=== PATIENT | male | born 1935 | race Hispanic/Latino ===

== ENCOUNTER → 2019-12-31 | Outpatient (CLI) | payer OTHER ==
[~2019-12-31] MED LIST: GADODIAMIDE 10 MMOL/20 ML VIAL IV ONE
== END | disposition home or self-care (01) ==
LOC: RAH 10:00
PROVIDERS: ATTEND Family Medicine
DX: G31.1 Senile degeneration of brain, not elsewhere classified (principal)
CPT/HCPCS: 70553; A9579

== ENCOUNTER 2020-02-10 20:53 | Inpatient (IN) | payer OTHER ==
[~2020-02-10] VITALS: Ht 165.1 cm; Wt 78.1 kg
[2020-02-10 21:48] LABS: BASOPHILS % (AUTO) 0.1 % (0.0-5.0); EOSINOPHILS % (AUTO) 0.3 % (0.0-8.0); HEMATOCRIT 30.4 % (42-54); LYMPHOCYTES % (AUTO) 18.8 % (21.0-51.0); MEAN CORPUSCULAR HEMOGLOBIN 27.2 pg (27.0-33.0); MEAN CORPUSCULAR HGB CONC 34.2 g/dL (32.0-36.0); MEAN CORPUSCULAR VOLUME 79.6 fL (79-99); MONOCYTES % (AUTO) 11.9 % (3.0-13.0); NEUTROPHILS % (AUTO) 68.3 % (40.0-77.0); PLATELET COUNT (AUTO) 323 K/uL (130-400); RED BLOOD CELL COUNT(AUTO) 3.82 MIL/uL (4.50-6.20); RED CELL DISTRIBUTION WIDTH 17.9 % (11.0-15.5)
[2020-02-10 21:56] LABS: ALBUMIN 3.2 g/dL (3.5-5.0); BILIRUBIN,TOTAL 1.5 mg/dL (0.2-1.0); CREATININE 1.2 mg/dL (0.5-1.5); POTASSIUM 4.2 mmol/L (3.5-5.1); TOTAL PROTEIN, SERUM 6.5 g/dL (6.0-8.3)
[2020-02-10 22:02] LABS: APPEARANCE,URINE Clear (CLEAR); BILIRUBIN,URINE Negative (NEGATIVE); COLOR,URINE Dark Yellow (YELLOW); GLUCOSE, URINE (UA) Negative (NEGATIVE); KETONES,URINE Trace mg/dL (NEGATIVE); LEUKOCYTE ESTERASE ,URINE Trace (NEGATIVE); NITRATE,URINE Negative (NEGATIVE); OCCULT BLOOD,URINE Negative (NEGATIVE); PROTEIN,URINE Trace mg/dL (NEGATIVE)
[2020-02-10 22:26] LABS: BACTERIA,URINE None Seen /HPF (None Seen); MUCUS,URINE Many LPF (None Seen); RBC,URINE None Seen /HPF (0-1); SQUAMOUS EPITHELIAL CELL,UR Few /HPF (0-2)
[2020-02-10] MEDS ORDERED: SODIUM CHLORIDE 0.9% 1000ML 1,000 ML IV ONE ×2 (22:40→22:58)
[2020-02-10] MEDS ORDERED: SODIUM BICARBONATE 650 MG TAB ONE (22:57)
[2020-02-11] VITALS (7 sets, daily range): BP systolic 117–150; BP diastolic 53–69
[2020-02-11] MEDS ORDERED: GABA600T10 PO (00:47)
[2020-02-11] MEDS ORDERED: LISI2.5T2 PO (00:47)
[2020-02-11] MEDS ORDERED: METF-444 PO (00:47)
[2020-02-11] MEDS ORDERED: MULT-1289 PO (00:47)
[2020-02-11] MEDS ORDERED: CARB1TAB20 PO (00:51)
[2020-02-11] MEDS ORDERED: TAMS-1 PO (00:51)
[2020-02-11] MEDS ORDERED: PRAV10TA39 PO (00:51)
[2020-02-11] MEDS ORDERED: ACET-2743 PO (00:51)
[2020-02-11] MEDS ORDERED: BRIM5DRO OU (00:54)
[2020-02-11] MEDS ORDERED: DORZ10DR9 OU (00:54)
[2020-02-11] MEDS ORDERED: FERS325 PO (00:54)
[2020-02-11] MEDS ORDERED: LATA2.5D2 OU (00:55)
[2020-02-11] MEDS: SODIUM CHLORIDE 0.9% 1000ML 1,000 ML IV SCH ×2 (02:00→15:24)
[2020-02-11] MEDS: SODIUM BICARBONATE 650 MG TAB PO SCH ×2 (07:51→21:53)
[2020-02-11] MEDS: FERROUS SULFATE 325 MG TABLET.DR PO SCH (07:52)
[2020-02-11] MEDS: LISINOPRIL 2.5 MG TABLET PO SCH (07:52)
[2020-02-11] MEDS: TAMSULOSIN HCL 0.4 MG CAP.ER.24H PO SCH (07:52)
[2020-02-11] MEDS: METFORMIN HCL 500 MG TABLET PO SCH ×2 (07:53→17:16)
[2020-02-11] MEDS: MULTIVITAMIN WITH MINERALS TABLET PO SCH (07:53)
[2020-02-11] MEDS: GABAPENTIN 300 MG CAPSULE PO SCH (07:53)
[2020-02-11] MEDS: ACETAMINOPHEN EXTRA STRENGTH 500 MG TABLET PO PRN ×2 (07:55→21:53)
[2020-02-11] MEDS: TIMOLOL OU SCH ×2 (07:57→21:55)
[2020-02-11] MEDS: BRIMONIDINE TARTRATE OU SCH ×2 (07:57→21:55)
[2020-02-11] MEDS: DORZOLAMIDE HCL 2% 10ML DROPS OU SCH ×3 (08:00→21:54)
[2020-02-11] MEDS: CARBIDOPA-LEVODOPA 25-100 TAB PO SCH ×3 (08:01→21:52)
--- NOTE | 2020-02-11 10:00 | NUR ---
DYSPHAGIA EVAL COMPLETED. -S/S OF ASPIRATION. RECOMMEND MECHANICAL SOFT/CHOPPED, THIN LIQUIDS; PILLS WHOLE WITH LIQUIDS. Addendum: 02/11/20 at 1352 by ALYSSIA BOSCH, [facility] Amended: Links added.
[2020-02-11 10:14] LABS: POTASSIUM 3.9 mmol/L (3.5-5.1)
--- NOTE | 2020-02-11 12:14 | NUR ---
1200 received oral consent from patient for IM Letter, I faxed IM Letter to [phone] and placed in chart under consent tab.
--- NOTE | 2020-02-11 13:53 | NUR ---
CT ABD/PELVIS PT A/A X 2 VS STABLE PT GOING FOR CT IN WHEELCHAIR
--- NOTE | 2020-02-11 15:19 | NUR ---
XRAY PT LEFT BY BED FOR XRAY
--- NOTE | 2020-02-11 16:40 | NUR ---
DCP CM met w/pt asleep at this time, called spouse spoke to Sushila Nicole discussed dc plans. Pt is semi-independent prior to admission, lives at home with spouse. Pt has a walker, shower chair, bedside commode, wheelchair that belongs to nephew previously. Spouse verbalized their house is handicap accessible, restroom has built in rails and sit w/handle bars. Was active w/[facility] for PT, but discharged last week. Denies nay other equipments/services. Feels safe to go back home, spouse able to assist with transportation and needs as necessary. Discussed if spouse ok for short term rehab, spouse verbalized she'll think about it, if necessary she is ok, will decide once closer to dc. DC plan to home vs w/HH or SNF. CM to cont to follow up. Addendum: 02/11/20 at 1644 by VALERIE HARRIS LVN CM Amended: Links added.
[2020-02-11] MEDS: SIMVASTATIN 10 MG TABLET PO SCH (21:52)
[2020-02-11] MEDS: LATANOPROST 2.5 ML DROPS OU SCH (21:55)
[2020-02-12 03:40] VITALS: BP 157/68
[2020-02-12 05:30] LABS: CREATININE 0.8 mg/dL (0.5-1.5); POTASSIUM 3.8 mmol/L (3.5-5.1)
--- NOTE | 2020-02-12 06:00 | NUR ---
PATIENT UPDATE Slept fairly overnight,medicated once for pain with tylenol extra strength which afforded relief. Gets confused most of the time, reoriented x 3. Noted that pt drinks a lot of water everytime he takes the po meds, 1 whole cup of h2o for every 2 pills taken. Pt mostly bedbound, incontinent of urine. Kept warm and dry, nic scd's applied to nic legs for vte protocol.
[2020-02-12] MEDS: GABAPENTIN 300 MG CAPSULE PO SCH (08:03)
[2020-02-12] MEDS: MULTIVITAMIN WITH MINERALS TABLET PO SCH (08:03)
[2020-02-12] MEDS: LISINOPRIL 2.5 MG TABLET PO SCH (08:04)
[2020-02-12] MEDS: FERROUS SULFATE 325 MG TABLET.DR PO SCH (08:04)
[2020-02-12] MEDS: CARBIDOPA-LEVODOPA 25-100 TAB PO SCH ×3 (08:04→21:10)
[2020-02-12] MEDS: SODIUM BICARBONATE 650 MG TAB PO SCH (08:04)
[2020-02-12] MEDS: TAMSULOSIN HCL 0.4 MG CAP.ER.24H PO SCH (08:04)
[2020-02-12] MEDS: METFORMIN HCL 500 MG TABLET PO SCH ×2 (08:05→18:16)
[2020-02-12] MEDS: BRIMONIDINE TARTRATE OU SCH ×2 (08:11→21:11)
[2020-02-12] MEDS: DORZOLAMIDE HCL 2% 10ML DROPS OU SCH ×3 (08:11→21:11)
[2020-02-12] MEDS: TIMOLOL OU SCH ×2 (08:11→21:11)
[2020-02-12 09:53] VITALS: BP 129/65
[2020-02-12] MEDS: SODIUM CHLORIDE 1,000 MG TAB PO SCH ×2 (10:34→18:16)
[2020-02-12 11:37] VITALS: BP 127/46
--- NOTE | 2020-02-12 12:34 | NUR ---
FOLLOW UP COMPLETED. Pt TOLERATING MECHANICAL SOFT, THIN LIQUID DIET. NO OVERT S/S OF ASPIRATION AT THIS TIME. [employer] [employer]ITIONER WILL CONTINUE TO FOLLOW Pt. Addendum: 02/12/20 at 1236 by ALYSSIA BOSCH, [facility] ST Amended: Links added.
[2020-02-12] MEDS: ACETAMINOPHEN EXTRA STRENGTH 500 MG TABLET PO PRN (15:12)
--- NOTE | 2020-02-12 16:38 | NUR ---
TYLENOL GIVEN FOR GENERALIZED PAIN
[2020-02-12 16:45] VITALS: BP 114/62
[2020-02-12] MEDS: SODIUM CHLORIDE 0.9% 1000ML 1,000 ML IV SCH ×3 (18:00→23:36)
[2020-02-12 20:00] VITALS: BP 128/59
[2020-02-12] MEDS: SIMVASTATIN 10 MG TABLET PO SCH (21:10)
[2020-02-12] MEDS: LATANOPROST 2.5 ML DROPS OU SCH (21:11)
[2020-02-12 23:44] VITALS: BP 131/59
[2020-02-13 03:55] VITALS: BP 158/77
[2020-02-13 05:29] LABS: CREATININE 0.8 mg/dL (0.5-1.5); MAGNESIUM 1.6 mg/dL (1.80-2.40); POTASSIUM 3.8 mmol/L (3.5-5.1)
[2020-02-13 08:00] VITALS: BP 144/59
[2020-02-13] MEDS: METFORMIN HCL 500 MG TABLET PO SCH ×2 (09:16→20:14)
[2020-02-13] MEDS: GABAPENTIN 300 MG CAPSULE PO SCH (09:16)
[2020-02-13] MEDS: MULTIVITAMIN WITH MINERALS TABLET PO SCH (09:17)
[2020-02-13] MEDS: LISINOPRIL 2.5 MG TABLET PO SCH (09:17)
[2020-02-13] MEDS: CARBIDOPA-LEVODOPA 25-100 TAB PO SCH ×3 (09:17→21:36)
[2020-02-13] MEDS: TAMSULOSIN HCL 0.4 MG CAP.ER.24H PO SCH (09:18)
[2020-02-13] MEDS: SODIUM CHLORIDE 1,000 MG TAB PO SCH ×3 (09:18→20:14)
[2020-02-13] MEDS: FERROUS SULFATE 325 MG TABLET.DR PO SCH (09:18)
[2020-02-13] MEDS: DORZOLAMIDE HCL 2% 10ML DROPS OU SCH ×3 (09:25→21:42)
[2020-02-13] MEDS: BRIMONIDINE TARTRATE OU SCH ×2 (09:28→21:42)
[2020-02-13] MEDS: TIMOLOL OU SCH ×2 (09:28→21:42)
[2020-02-13 11:00] VITALS: BP 147/52
--- NOTE | 2020-02-13 15:01 | NUR ---
RD NOTIFICATION Pt admitted with Hyponatremia, Recent fall, weakness. Pt is with improved appetite on Regular, mechanical soft, Finely chopped diet order. Monitored labs:Na 126, Cl 93, BG 122, Mg 1.60, Alb 3.2. Pt with NaCl tablet with meals in place. Pt also with MVI. LBM 02/10/20. Recommend monitor for BM, stool softener/laxative as needed Recommend Glucerna QD Recommend Mg supplementation as medically feasible. RD to continue to monitor. Please notify as additional nutrition concerns arise. Thank you.
[2020-02-13 16:51] VITALS: BP 125/55
[2020-02-13 19:00] VITALS: BP 141/61
[2020-02-13] MEDS: SIMVASTATIN 10 MG TABLET PO SCH (21:36)
[2020-02-13] MEDS: LATANOPROST 2.5 ML DROPS OU SCH (21:42)
[2020-02-14] VITALS (7 sets, daily range): BP systolic 112–166; BP diastolic 47–74
[2020-02-14] MEDS: ACETAMINOPHEN EXTRA STRENGTH 500 MG TABLET PO PRN (04:34)
[2020-02-14 06:05] LABS: HEMATOCRIT 27.5 % (42-54); MEAN CORPUSCULAR HEMOGLOBIN 27.2 pg (27.0-33.0); MEAN CORPUSCULAR HGB CONC 33.1 g/dL (32.0-36.0); MEAN CORPUSCULAR VOLUME 82.3 fL (79-99); PLATELET COUNT (AUTO) 307 K/uL (130-400); RED BLOOD CELL COUNT(AUTO) 3.34 MIL/uL (4.50-6.20); RED CELL DISTRIBUTION WIDTH 18.4 % (11.0-15.5); WHITE BLOOD COUNT (AUTO) 7.7 K/uL (4.8-10.8)
[2020-02-14 06:40] LABS: ALBUMIN 2.5 g/dL (3.5-5.0); BILIRUBIN,TOTAL 1.1 mg/dL (0.2-1.0); CREATININE 0.8 mg/dL (0.5-1.5); MAGNESIUM 1.6 mg/dL (1.80-2.40); PHOSPHORUS 3.2 mg/dL (2.5-4.9); POTASSIUM 4.2 mmol/L (3.5-5.1); THYROID STIMULATING HORMONE 1.1 uIU/mL (0.36-3.74); TOTAL PROTEIN, SERUM 5.9 g/dL (6.0-8.3)
[2020-02-14] MEDS: MULTIVITAMIN WITH MINERALS TABLET PO SCH (09:28)
[2020-02-14] MEDS: SODIUM CHLORIDE 1,000 MG TAB PO SCH ×3 (09:28→18:46)
[2020-02-14] MEDS: CARBIDOPA-LEVODOPA 25-100 TAB PO SCH ×3 (09:28→20:16)
[2020-02-14] MEDS: TAMSULOSIN HCL 0.4 MG CAP.ER.24H PO SCH (09:29)
[2020-02-14] MEDS: GABAPENTIN 300 MG CAPSULE PO SCH (09:29)
[2020-02-14] MEDS: LISINOPRIL 2.5 MG TABLET PO SCH (09:29)
[2020-02-14] MEDS: METFORMIN HCL 500 MG TABLET PO SCH ×2 (09:30→18:45)
[2020-02-14] MEDS: FERROUS SULFATE 325 MG TABLET.DR PO SCH (09:30)
[2020-02-14] MEDS: BRIMONIDINE TARTRATE OU SCH ×2 (09:43→19:37)
[2020-02-14] MEDS: TIMOLOL OU SCH ×2 (09:43→19:37)
[2020-02-14] MEDS: DORZOLAMIDE HCL 2% 10ML DROPS OU SCH ×3 (09:44→19:37)
[2020-02-14] MEDS ORDERED: MAG HYDROX/AL HYDROX/SIMETH ES 30 ML SUSP UDCUP PO PRN (13:45)
[2020-02-14] MEDS: CEFTRIAXONE SODIUM 1 GM IVP SCH (14:30)
[2020-02-14] MEDS: SENNOSIDES 8.6 MG TABLET PO SCH (14:30)
[2020-02-14] MEDS: MAGNESIUM 2GM PREMIX 50ML 50 ML IV SCH (14:36)
[2020-02-14] MEDS: INSULIN HUMULIN R 100 UNIT/ML 3ML SQ SCH ×2 (16:30→19:37)
[2020-02-14] MEDS: LATANOPROST 2.5 ML DROPS OU SCH (19:37)
[2020-02-14] MEDS: SIMVASTATIN 10 MG TABLET PO SCH (20:16)
--- NOTE | 2020-02-14 23:17 | NUR ---
received report from am nurse, assumed care, pt aox2, bed alarm on, head to toe assessment done, timed medication given see emar, 24 cc done, safety maintained, bed in lowest position, call ayala in reached, will continue to monitor.
[2020-02-15 04:00] VITALS: BP 118/49
[2020-02-15 06:22] LABS: HEMATOCRIT 25.7 % (42-54); MEAN CORPUSCULAR HEMOGLOBIN 27.7 pg (27.0-33.0); MEAN CORPUSCULAR HGB CONC 33.5 g/dL (32.0-36.0); MEAN CORPUSCULAR VOLUME 82.6 fL (79-99); RED BLOOD CELL COUNT(AUTO) 3.11 MIL/uL (4.50-6.20); RED CELL DISTRIBUTION WIDTH 18.5 % (11.0-15.5); WHITE BLOOD COUNT (AUTO) 5.5 K/uL (4.8-10.8)
[2020-02-15 06:42] LABS: CREATININE 0.7 mg/dL (0.5-1.5); MAGNESIUM 1.8 mg/dL (1.80-2.40); POTASSIUM 4.1 mmol/L (3.5-5.1)
[2020-02-15] MEDS: INSULIN HUMULIN R 100 UNIT/ML 3ML SQ SCH ×4 (07:30→21:00)
[2020-02-15 08:00] VITALS: BP 138/63
[2020-02-15] MEDS: METFORMIN HCL 500 MG TABLET PO SCH ×2 (09:39→17:56)
[2020-02-15] MEDS: SODIUM CHLORIDE 1,000 MG TAB PO SCH ×3 (09:39→17:56)
[2020-02-15] MEDS: FERROUS SULFATE 325 MG TABLET.DR PO SCH (09:40)
[2020-02-15] MEDS: TAMSULOSIN HCL 0.4 MG CAP.ER.24H PO SCH (09:41)
[2020-02-15] MEDS: GABAPENTIN 300 MG CAPSULE PO SCH (09:41)
[2020-02-15] MEDS: CARBIDOPA-LEVODOPA 25-100 TAB PO SCH ×3 (09:41→19:37)
[2020-02-15] MEDS: LISINOPRIL 2.5 MG TABLET PO SCH (09:42)
[2020-02-15] MEDS: MULTIVITAMIN WITH MINERALS TABLET PO SCH (09:42)
[2020-02-15] MEDS: TIMOLOL OU SCH ×2 (09:43→19:39)
[2020-02-15] MEDS: DORZOLAMIDE HCL 2% 10ML DROPS OU SCH ×3 (09:43→19:39)
[2020-02-15] MEDS: BRIMONIDINE TARTRATE OU SCH ×2 (09:43→19:39)
[2020-02-15 11:55] VITALS: BP 109/53
[2020-02-15] MEDS: SENNOSIDES 8.6 MG TABLET PO SCH (14:30)
[2020-02-15] MEDS: CEFTRIAXONE SODIUM 1 GM IVP SCH (14:41)
[2020-02-15 16:00] VITALS: BP 134/65
[2020-02-15] MEDS: ACETAMINOPHEN EXTRA STRENGTH 500 MG TABLET PO PRN (18:38)
[2020-02-15] MEDS: SIMVASTATIN 10 MG TABLET PO SCH (19:37)
[2020-02-15] MEDS: MAGNESIUM 2GM PREMIX 50ML 50 ML IV SCH (19:37)
[2020-02-15] MEDS: LATANOPROST 2.5 ML DROPS OU SCH (19:38)
[2020-02-15 20:00] VITALS: BP 134/57
[2020-02-16] VITALS (7 sets, daily range): BP systolic 100–159; BP diastolic 36–71
[2020-02-16] MEDS: ACETAMINOPHEN EXTRA STRENGTH 500 MG TABLET PO PRN ×2 (02:56→17:47)
[2020-02-16 05:21] LABS: CREATININE 0.8 mg/dL (0.5-1.5); MAGNESIUM 1.8 mg/dL (1.80-2.40)
[2020-02-16] MEDS: METFORMIN HCL 500 MG TABLET PO SCH ×2 (05:32→17:00)
[2020-02-16] MEDS: SODIUM CHLORIDE 1,000 MG TAB PO SCH ×3 (05:32→17:00)
[2020-02-16] MEDS: MAGNESIUM 2GM PREMIX 50ML 50 ML IV SCH (07:29)
[2020-02-16] MEDS: INSULIN HUMULIN R 100 UNIT/ML 3ML SQ SCH ×4 (07:30→20:09)
[2020-02-16] MEDS: MULTIVITAMIN WITH MINERALS TABLET PO SCH (09:28)
[2020-02-16] MEDS: TAMSULOSIN HCL 0.4 MG CAP.ER.24H PO SCH (09:28)
[2020-02-16] MEDS: GABAPENTIN 300 MG CAPSULE PO SCH (09:28)
[2020-02-16] MEDS: FERROUS SULFATE 325 MG TABLET.DR PO SCH (09:28)
[2020-02-16] MEDS: CARBIDOPA-LEVODOPA 25-100 TAB PO SCH ×3 (09:28→20:10)
[2020-02-16] MEDS: LISINOPRIL 2.5 MG TABLET PO SCH (09:29)
[2020-02-16] MEDS: ENOXAPARIN SODIUM 40 MG/0.4 ML SYRINGE SQ SCH (09:29)
--- NOTE | 2020-02-16 10:26 | NUR ---
CALLED FOR PT UPDATE, NO ANSWER.
--- NOTE | 2020-02-16 10:31 | NUR ---
SPOKE TO THE SPOUSE REGARDING PT CURRENT CONDITION AND STATUS
--- NOTE | 2020-02-16 12:35 | NUR ---
RD FOLLOW UP Pt continues with low serum sodium levels. Notification received. Pt reports poor appetite due to back pain. Ate little breakfast this morning. Pt is drinking Glucerna nutritional shake and likes it pretty well. Recommend to increase to BID as medically feasible. Also recommend to offer snacks between meals to encourage increased energy intake. NaCl supplementation, MVI, MgSO4 in place. No note of fluid retention. Recommend continue sodium supplementation Recommend Glucerna BID Recommend snacks between meals, Saltine crackers with meals RD to continue to monitor. Please notify as additional nutrition concerns arise. Thank you.
[2020-02-16 13:47] LABS: INR 0.95 (0.85-1.15); PROTHROMBIN TIME 10.3 SEC (9.6-11.6)
[2020-02-16] MEDS: SENNOSIDES 8.6 MG TABLET PO SCH (14:10)
[2020-02-16] MEDS: CEFTRIAXONE SODIUM 1 GM IVP SCH (14:10)
--- NOTE | 2020-02-16 20:00 | NUR ---
ASSESS SHIFT ASSESSMENT DONE, PLEASE REFER TO CHART. KEPT COMFORTABLE IN BED. ENCOURAGED TO REST AND SLEEP. CALL LIGHT WITHIN REACH. WILL MONITOR PT. Addendum: 02/16/20 at 2203 by PILI EDMONDS RN RN Amended: Links added.
[2020-02-16] MEDS: SIMVASTATIN 10 MG TABLET PO SCH (20:08)
[2020-02-16] MEDS: LATANOPROST 2.5 ML DROPS OU SCH (20:10)
[2020-02-16] MEDS: BRIMONIDINE TARTRATE OU SCH (20:12)
[2020-02-16] MEDS: DORZOLAMIDE HCL 2% 10ML DROPS OU SCH (20:12)
[2020-02-16] MEDS: TIMOLOL OU SCH (20:12)
--- NOTE | 2020-02-16 21:50 | NUR ---
BATHE PCP IN AND GAVE PT A BED BATH. PT TOLERATED ACTIVITY WELL. KEPT RESTED AND COMFORTABLE IN BED. WILL CONTINUE TO MONITOR.
--- NOTE | 2020-02-17 02:10 | NUR ---
ROUNDS PT RESTING, FAIRLY ASLEEP IN THE CARDIAC CHAIR. NO DISTRESS NOTED. KEPT UNDISTURBED FOR NOW. CALL LIGHT WITHIN REACH.
[2020-02-17 03:47] VITALS: BP 128/47
--- NOTE | 2020-02-17 04:00 | NUR ---
CALL PT INSISTED ON CALLING HER . CALLED PT'S AND PT TALKED TO HER.
[2020-02-17] MEDS: ACETAMINOPHEN EXTRA STRENGTH 500 MG TABLET PO PRN (04:18)
--- NOTE | 2020-02-17 04:20 | NUR ---
PAIN PT CALLS FOR PAIN MEDICATION. CLAIMS OF BACK PAINS. MEDICATED WITH TYLENOL EXTRA STRENGTH. KEPT COMFORTABLE IN BED. WILL RE-ASSESS PT.
[2020-02-17] MEDS: INSULIN HUMULIN R 100 UNIT/ML 3ML SQ SCH ×4 (05:46→20:34)
[2020-02-17] MEDS: MAGNESIUM 2GM PREMIX 50ML 50 ML IV SCH (05:46)
--- NOTE | 2020-02-17 05:46 | NUR ---
MG PT'S MG LEVEL=1.8. IV REPLACEMENT STARTED. FOR MORE CARE.
[2020-02-17 07:30] VITALS: BP 120/48
[2020-02-17 08:11] LABS: CREATININE 0.9 mg/dL (0.5-1.5); POTASSIUM 4.1 mmol/L (3.5-5.1)
[2020-02-17] MEDS: CARBIDOPA-LEVODOPA 25-100 TAB PO SCH ×3 (09:50→20:30)
[2020-02-17] MEDS: ENOXAPARIN SODIUM 40 MG/0.4 ML SYRINGE SQ SCH (09:51)
[2020-02-17] MEDS: MULTIVITAMIN WITH MINERALS TABLET PO SCH (09:52)
[2020-02-17] MEDS: TAMSULOSIN HCL 0.4 MG CAP.ER.24H PO SCH (09:52)
[2020-02-17] MEDS: GABAPENTIN 300 MG CAPSULE PO SCH (09:52)
[2020-02-17] MEDS: LISINOPRIL 2.5 MG TABLET PO SCH (09:52)
[2020-02-17] MEDS: FERROUS SULFATE 325 MG TABLET.DR PO SCH (09:52)
[2020-02-17] MEDS: METFORMIN HCL 500 MG TABLET PO SCH ×2 (09:57→17:00)
[2020-02-17] MEDS: DORZOLAMIDE HCL 2% 10ML DROPS OU SCH ×3 (09:59→20:32)
[2020-02-17] MEDS: TIMOLOL OU SCH ×2 (10:01→20:32)
[2020-02-17] MEDS: BRIMONIDINE TARTRATE OU SCH ×2 (10:01→20:32)
[2020-02-17] MEDS: SODIUM CHLORIDE 1,000 MG TAB PO SCH ×3 (10:10→17:21)
[2020-02-17 11:00] VITALS: BP 127/55
--- NOTE | 2020-02-17 12:00 | NUR ---
FAMILY called to check on husbands status updated her sodium 122 discussed with pt ate breakfast but does not want to eat lunch right now reoriented him several times today has his days and nights mixed up
[2020-02-17] MEDS: SENNOSIDES 8.6 MG TABLET PO SCH (14:30)
[2020-02-17] MEDS: CEFTRIAXONE SODIUM 1 GM IVP SCH (15:42)
[2020-02-17 16:00] VITALS: BP 130/49
--- NOTE | 2020-02-17 17:00 | NUR ---
FAMILY pt requesting to call ,mentioned I talked to her earlier assisted pt in calling states she sent some equal sugar and creamer for pt with his personal belongings [id number] pt requesting coffee remains up in chair drinking coffee states this is the best coffee ever
--- NOTE | 2020-02-17 19:00 | NUR ---
UP IN CHAIR Received pt sitting up in a cardiac chair.AAO x 3.Re emphasized free water restrictions to improve Sodium levels.
[2020-02-17 19:50] VITALS: BP 118/49
[2020-02-17] MEDS: SIMVASTATIN 10 MG TABLET PO SCH (20:30)
[2020-02-17] MEDS: LATANOPROST 2.5 ML DROPS OU SCH (20:31)
[2020-02-17 23:05] VITALS: BP 130/91
[2020-02-18] MEDS: ACETAMINOPHEN EXTRA STRENGTH 500 MG TABLET PO PRN ×3 (00:46→20:37)
--- NOTE | 2020-02-18 00:46 | NUR ---
PAIN Pt lying in bed,c/o of back pain.Medicated with Tylenol for c/o of back pain.
--- NOTE | 2020-02-18 01:46 | NUR ---
MED EFFECT Pt resting in bed,eyes closed.Respirations even and unlabored.
[2020-02-18 03:30] VITALS: BP 160/72
[2020-02-18] MEDS: INSULIN HUMULIN R 100 UNIT/ML 3ML SQ SCH ×4 (05:12→20:39)
[2020-02-18 05:46] LABS: HEMATOCRIT 24.5 % (42-54); MEAN CORPUSCULAR HEMOGLOBIN 27.9 pg (27.0-33.0); MEAN CORPUSCULAR HGB CONC 33.5 g/dL (32.0-36.0); MEAN CORPUSCULAR VOLUME 83.3 fL (79-99); RED BLOOD CELL COUNT(AUTO) 2.94 MIL/uL (4.50-6.20); RED CELL DISTRIBUTION WIDTH 17.8 % (11.0-15.5); WHITE BLOOD COUNT (AUTO) 4.4 K/uL (4.8-10.8)
[2020-02-18 06:07] LABS: ALBUMIN 2.5 g/dL (3.5-5.0); BILIRUBIN,TOTAL 0.4 mg/dL (0.2-1.0); CREATININE 0.8 mg/dL (0.5-1.5); MAGNESIUM 2.8 mg/dL (1.80-2.40); POTASSIUM 4.4 mmol/L (3.5-5.1); TOTAL PROTEIN, SERUM 5.6 g/dL (6.0-8.3)
[2020-02-18 07:30] VITALS: BP 153/62
[2020-02-18] MEDS: BRIMONIDINE TARTRATE OU SCH ×2 (09:00→20:39)
[2020-02-18] MEDS: TIMOLOL OU SCH ×2 (09:00→20:39)
[2020-02-18] MEDS: DORZOLAMIDE HCL 2% 10ML DROPS OU SCH ×3 (09:00→20:39)
[2020-02-18] MEDS: METFORMIN HCL 500 MG TABLET PO SCH ×2 (09:57→17:00)
[2020-02-18] MEDS: TAMSULOSIN HCL 0.4 MG CAP.ER.24H PO SCH (09:57)
[2020-02-18] MEDS: CARBIDOPA-LEVODOPA 25-100 TAB PO SCH ×3 (09:57→20:36)
[2020-02-18] MEDS: MULTIVITAMIN WITH MINERALS TABLET PO SCH (09:57)
[2020-02-18] MEDS: FERROUS SULFATE 325 MG TABLET.DR PO SCH (09:57)
[2020-02-18] MEDS: LISINOPRIL 2.5 MG TABLET PO SCH (09:58)
[2020-02-18] MEDS: GABAPENTIN 300 MG CAPSULE PO SCH (09:58)
[2020-02-18] MEDS: SODIUM CHLORIDE 1,000 MG TAB PO SCH ×3 (09:58→17:34)
[2020-02-18] MEDS: ENOXAPARIN SODIUM 40 MG/0.4 ML SYRINGE SQ SCH (10:00)
[2020-02-18 11:00] VITALS: BP 154/68
[2020-02-18] MEDS: SENNOSIDES 8.6 MG TABLET PO SCH (14:30)
[2020-02-18] MEDS: CEFTRIAXONE SODIUM 1 GM IVP SCH (14:46)
[2020-02-18 16:00] VITALS: BP 127/55
[2020-02-18 19:55] VITALS: BP 128/40
[2020-02-18] MEDS: FLUDROCORTISONE ACETATE 0.1 MG TABLET PO SCH (20:37)
[2020-02-18] MEDS: SIMVASTATIN 10 MG TABLET PO SCH (20:37)
[2020-02-18] MEDS: LATANOPROST 2.5 ML DROPS OU SCH (20:39)
[2020-02-18 23:32] VITALS: BP 146/51
[2020-02-19 03:45] VITALS: BP 136/73
--- NOTE | 2020-02-19 05:03 | NUR ---
PAGED BENCHMARK EDWIN CALDERON FOR PATIENT'S SEVERE BACK PAIN. PENDING CALL BACK
[2020-02-19 05:26] LABS: EOSINOPHILS % (AUTO) 0.7 % (0.0-8.0); HEMATOCRIT 26.1 % (42-54); LYMPHOCYTES % (AUTO) 26.8 % (21.0-51.0); MEAN CORPUSCULAR HEMOGLOBIN 27.4 pg (27.0-33.0); MEAN CORPUSCULAR VOLUME 83.1 fL (79-99); MONOCYTES % (AUTO) 8.5 % (3.0-13.0); NEUTROPHILS % (AUTO) 63.6 % (40.0-77.0); PLATELET COUNT (AUTO) 280 K/uL (130-400); RED BLOOD CELL COUNT(AUTO) 3.14 MIL/uL (4.50-6.20); RED CELL DISTRIBUTION WIDTH 17.8 % (11.0-15.5); WHITE BLOOD COUNT (AUTO) 4.5 K/uL (4.8-10.8)
[2020-02-19 05:45] LABS: ALBUMIN 2.6 g/dL (3.5-5.0); BILIRUBIN,TOTAL 0.5 mg/dL (0.2-1.0); CREATININE 0.8 mg/dL (0.5-1.5); TOTAL PROTEIN, SERUM 6.3 g/dL (6.0-8.3)
[2020-02-19] MEDS ORDERED: MORPHINE SULFATE 2 MG/ML 1ML SYG IVP PRN (05:45)
[2020-02-19] MEDS: INSULIN HUMULIN R 100 UNIT/ML 3ML SQ SCH ×3 (06:27→16:30)
[2020-02-19] MEDS: SODIUM CHLORIDE 1,000 MG TAB PO SCH ×3 (06:28→17:00)
[2020-02-19] MEDS: METFORMIN HCL 500 MG TABLET PO SCH ×2 (06:29→17:00)
[2020-02-19 07:56] VITALS: BP 132/50
[2020-02-19] MEDS: ENOXAPARIN SODIUM 40 MG/0.4 ML SYRINGE SQ SCH (08:34)
[2020-02-19] MEDS: MULTIVITAMIN WITH MINERALS TABLET PO SCH (08:34)
[2020-02-19] MEDS: TAMSULOSIN HCL 0.4 MG CAP.ER.24H PO SCH (08:34)
[2020-02-19] MEDS: LISINOPRIL 2.5 MG TABLET PO SCH (08:34)
[2020-02-19] MEDS: FERROUS SULFATE 325 MG TABLET.DR PO SCH (08:35)
[2020-02-19] MEDS: CARBIDOPA-LEVODOPA 25-100 TAB PO SCH ×2 (08:35→14:06)
[2020-02-19] MEDS: GABAPENTIN 300 MG CAPSULE PO SCH (08:35)
[2020-02-19] MEDS: BRIMONIDINE TARTRATE OU SCH (08:38)
[2020-02-19] MEDS: TIMOLOL OU SCH (08:38)
[2020-02-19 11:45] VITALS: BP 124/52
[2020-02-19] MEDS: DORZOLAMIDE HCL 2% 10ML DROPS OU SCH ×2 (14:00→14:07)
[2020-02-19] MEDS: FLUDROCORTISONE ACETATE 0.1 MG TABLET PO SCH (14:06)
[2020-02-19] MEDS: SENNOSIDES 8.6 MG TABLET PO SCH (14:30)
[2020-02-19] MEDS ORDERED: FLUD.1 PO (14:36)
[2020-02-19] MEDS ORDERED: SODI100037 PO (14:36)
[2020-02-19 16:00] VITALS: BP 129/56
--- NOTE | 2020-02-19 16:50 | NUR ---
PT WAS CALLED TO COME TO PICK HIM UP REVIEW HIS MEDICATIONS AND PRESCRIPTIONS AND TO FOLLOW SCHLD MEDICATIONS AT HOME, AND TO LIMITS HIS WATER AT HOME UNDERSTAND THIS BECAUSE SHE STATED THAT THIS IN NOT NEW FOR HIM , AND HAS THIS PROBLEM BEFORE AND WILL CALL DR. SMITH OFFICE IN THE MORNING TO SEE HIM IN HIS OFFICE IN 1-2DAYS
--- NOTE | 2020-02-19 18:10 | NUR ---
DISCHARGE HOME, WITH , EXPLAIN TO PT. OF HIS APPT, TO FOLLOW AGAIN AND MEDIATICATION AND WATER LIMITS AT HOME, SODIUM OF 124 LABS THIS AM. AND IS AWARE OF RESULTS .WILL BE TAKING TO DR ALLI GROSS. 1-2 DAYS.. SL TO HIS RFA ,WAS DC , SITE SITE PRESSURE APPLICATION ON NOTED NO HEMATOMA .
== END 2020-02-19 18:30 | disposition home or self-care (01) | DRG 641 ==
LOC: EDH 20:53 → EDHIP 22:35 → OBSVTOIN 22:35 → 3CH 23:40
PROVIDERS: ADMIT Internal Medicine Critical Care Medicine; ATTEND Internal Medicine Critical Care Medicine
DX: E87.1 Hypo-osmolality and hyponatremia (principal); N39.0 Urinary tract infection, site not specified; E78.5 Hyperlipidemia, unspecified; E11.9 Type 2 diabetes mellitus without complications; I25.10 Atherosclerotic heart disease of native coronary artery without angina pectoris; N40.0 Benign prostatic hyperplasia without lower urinary tract symptoms; J44.9 Chronic obstructive pulmonary disease, unspecified; R63.1 Polydipsia; R29.6 Repeated falls; H40.9 Unspecified glaucoma; G89.29 Other chronic pain; I10 Essential (primary) hypertension; R56.9 Unspecified convulsions; M54.9 Dorsalgia, unspecified; G20 Parkinson's disease; D64.9 Anemia, unspecified; W18.30XA Fall on same level, unspecified, initial encounter; Z79.84 Long term (current) use of oral hypoglycemic drugs; Z79.899 Other long term (current) drug therapy; Z91.81 History of falling; Z87.891 Personal history of nicotine dependence; Z79.52 Long term (current) use of systemic steroids; Y93.89 Activity, other specified; Y92.89 Other specified places as the place of occurrence of the external cause; Y99.8 Other external cause status
CPT/HCPCS: 36415; 70450; 71046; 73030; 80048; 80053; 81001; 82140; 82533; 82948; 83735; 84100; 84300; 84443; 84484; 85025; 85027; 85610; 85730; 92610; 93005; 97039; 99291; G0378; J0696; J1650; J1815; J3475; J7030

== ENCOUNTER 2020-07-09 15:16 | Inpatient (IN) | payer OTHER ==
[~2020-07-09] VITALS: Ht 162.6 cm; Wt 81.5 kg
[~2020-07-09 15:16] MED LIST changes: +ACET-2743 PO; +BRIM5DRO OU; +CARB1TAB20 PO; +DORZ10DR9 OU; +FERS325 PO; +FLUD.1 PO; +GABA600T10 PO; -GADODIAMIDE 10 MMOL/20 ML VIAL IV ONE; +LATA2.5D14 OU; +LISI2.5T13 PO; +METF-444 PO; +MULT-1289 PO; +PRAV10TA39 PO; +SODI100037 PO; +TAMS-1 PO
[2020-07-09 16:04] LABS: BASOPHILS % (AUTO) 0.3 % (0.0-5.0); EOSINOPHILS % (AUTO) 1.1 % (0.0-8.0); HEMATOCRIT 38.4 % (42-54); LYMPHOCYTES % (AUTO) 19.3 % (21.0-51.0); MEAN CORPUSCULAR HEMOGLOBIN 23.3 pg (27.0-33.0); MEAN CORPUSCULAR HGB CONC 31.3 g/dL (32.0-36.0); MEAN CORPUSCULAR VOLUME 74.4 fL (79-99); MONOCYTES % (AUTO) 4.2 % (3.0-13.0); NEUTROPHILS % (AUTO) 74.8 % (40.0-77.0); PLATELET COUNT (AUTO) 455 K/uL (130-400); RED BLOOD CELL COUNT(AUTO) 5.16 MIL/uL (4.50-6.20); WHITE BLOOD COUNT (AUTO) 11.3 K/uL (4.8-10.8)
[2020-07-09 16:14] LABS: CREATININE 0.7 mg/dL (0.5-1.5); POTASSIUM 3.8 mmol/L (3.5-5.1)
[2020-07-09 16:15] LABS: INR 0.99 (0.85-1.15); PROTHROMBIN TIME 10.8 SEC (9.6-11.6)
[2020-07-09 16:16] LABS: PARTIAL THROMBOPLASTIN TIME 25.7 SEC (26.3-35.5)
[2020-07-09 16:17] LABS: ALBUMIN 3.9 g/dL (3.5-5.0); BILIRUBIN,TOTAL 0.3 mg/dL (0.2-1.0); CRP QUANTITATIVE 15.4 mg/L (0.00-9.0); TOTAL PROTEIN, SERUM 8.5 g/dL (6.0-8.3)
[2020-07-09 16:47] LABS: B-TYPE NATRIURETIC PEPTIDE < 5 pg/mL (0-100)
[2020-07-09 19:38] LABS: APPEARANCE,URINE Cloudy (CLEAR); BILIRUBIN,URINE Small (NEGATIVE); COLOR,URINE Dark Yellow (YELLOW); GLUCOSE, URINE (UA) Negative (NEGATIVE); KETONES,URINE 15 mg/dL (NEGATIVE); LEUKOCYTE ESTERASE ,URINE Trace (NEGATIVE); NITRATE,URINE Negative (NEGATIVE); OCCULT BLOOD,URINE Moderate (NEGATIVE); PROTEIN,URINE Trace mg/dL (NEGATIVE)
[2020-07-09] MEDS ORDERED: CEFTRIAXONE 1G VIAL ONE (19:56)
[2020-07-09 20:15] LABS: BACTERIA,URINE Rare /HPF (None Seen); MUCUS,URINE Moderate LPF (None Seen); SQUAMOUS EPITHELIAL CELL,UR Rare /HPF (0-2)
[2020-07-09 20:16] LABS: URIC ACID CRYSTALS,URINE Few /LPF (None Seen)
[2020-07-09] MEDS ORDERED: ONDANSETRON 4MG INJ IV PRN (22:00)
[2020-07-09] MEDS: 0.9%NACL 1000ML 1,000 ML IV SCH (22:00)
[2020-07-09] MEDS: AZITHROMYCIN 500MG+NS 250ML 250 ML IV SCH (22:00)
[2020-07-09] MEDS ORDERED: ACETAMINOPHEN 325 MG TAB PO PRN (22:00)
[2020-07-09] MEDS ORDERED: LACTULOSE 20 GM/30 ML UDCUP PO PRN (22:00)
[2020-07-09] MEDS ORDERED: ZOLPIDEM TARTRATE 5 MG TAB PO PRN (22:00)
[2020-07-09] MEDS ORDERED: BENZONATATE 100 MG CAPSULE PO PRN (22:00)
[2020-07-09] MEDS: IPRATROPIUM/ALBUTEROL SULFATE 3 ML SOLUTION IH SCH (22:00)
[2020-07-09] MEDS ORDERED: DiphenhydrAMINE HCL 50 MG/ML VIAL IV PRN (22:00)
[2020-07-09] MEDS ORDERED: AZITHROMYCIN 500MG+NS 250ML 250 ML IV ONE (22:51)
[2020-07-10] MEDS: IPRATROPIUM/ALBUTEROL SULFATE 3 ML SOLUTION IH SCH ×4 (02:00→22:00)
[2020-07-10 05:00] LABS: BASOPHILS % (AUTO) 0.2 % (0.0-5.0); EOSINOPHILS % (AUTO) 0.2 % (0.0-8.0); HEMATOCRIT 26.9 % (42-54); LYMPHOCYTES % (AUTO) 17.1 % (21.0-51.0); MEAN CORPUSCULAR HEMOGLOBIN 27.4 pg (27.0-33.0); MEAN CORPUSCULAR HGB CONC 33.5 g/dL (32.0-36.0); MEAN CORPUSCULAR VOLUME 81.8 fL (79-99); MONOCYTES % (AUTO) 6.9 % (3.0-13.0); NEUTROPHILS % (AUTO) 75.1 % (40.0-77.0); PLATELET COUNT (AUTO) 287 K/uL (130-400); RED BLOOD CELL COUNT(AUTO) 3.29 MIL/uL (4.50-6.20); RED CELL DISTRIBUTION WIDTH 16.5 % (11.0-15.5); WHITE BLOOD COUNT (AUTO) 6.6 K/uL (4.8-10.8)
[2020-07-10 05:38] LABS: ALBUMIN 2.3 g/dL (3.5-5.0); BILIRUBIN,DIRECT 0.5 mg/dL (0.0-0.3); BILIRUBIN,TOTAL 1.3 mg/dL (0.2-1.0); CREATININE 0.8 mg/dL (0.5-1.5); POTASSIUM 3.6 mmol/L (3.5-5.1); TOTAL PROTEIN, SERUM 5.7 g/dL (6.0-8.3)
[2020-07-10 05:40] LABS: THYROID STIMULATING HORMONE 2.63 uIU/mL (0.36-3.74)
[2020-07-10] MEDS: FAMOTIDINE 20MG VIAL IV SCH (09:00)
[2020-07-10] MEDS: ENOXAPARIN SODIUM 40 MG/0.4 ML SYRINGE SQ SCH (09:00)
[2020-07-10] MEDS ORDERED: ENOXAPARIN SODIUM 40 MG/0.4 ML SYRINGE SQ ONE (10:02)
[2020-07-10] MEDS ORDERED: 0.9%NACL 1000ML 1,000 ML IV ONE (10:03)
[2020-07-10] MEDS ORDERED: FAMOTIDINE 20MG VIAL IV ONE (10:03)
[2020-07-10] MEDS: 0.9%NACL 1000ML 1,000 ML IV SCH ×2 (11:20→20:22)
[2020-07-10 12:11] VITALS: BP 148/67
[2020-07-10] MEDS ORDERED: IRON1CAP30 PO (18:23)
[2020-07-10] MEDS ORDERED: HYDR-4068 PO (18:23)
[2020-07-10 19:45] VITALS: BP 142/65
[2020-07-10] MEDS: AZITHROMYCIN 500MG+NS 250ML 250 ML IV SCH (20:21)
[2020-07-10] MEDS: CEFTRIAXONE 1G VIAL IV SCH (21:11)
[2020-07-11] VITALS (7 sets, daily range): BP systolic 103–159; BP diastolic 58–75
[2020-07-11] MEDS: IPRATROPIUM/ALBUTEROL SULFATE 3 ML SOLUTION IH SCH ×3 (06:00→22:00)
[2020-07-11 06:12] LABS: HEMATOCRIT 26.4 % (42-54); MEAN CORPUSCULAR HGB CONC 32.6 g/dL (32.0-36.0); RED BLOOD CELL COUNT(AUTO) 3.18 MIL/uL (4.50-6.20); WHITE BLOOD COUNT (AUTO) 6.9 K/uL (4.8-10.8)
[2020-07-11 06:29] LABS: CREATININE 0.9 mg/dL (0.5-1.5); MAGNESIUM 1.4 mg/dL (1.80-2.40); POTASSIUM 3.8 mmol/L (3.5-5.1)
[2020-07-11] MEDS: 0.9%NACL 1000ML 1,000 ML IV SCH ×2 (07:40→17:40)
[2020-07-11] MEDS ORDERED: LIDOCAINE HCL-MPF 1% 2ML VIAL IV PRN ×2 (08:00)
[2020-07-11] MEDS ORDERED: POTASSIUM CHLORIDE 10% ELIXIR 20 MEQ/15 ML UDCUP PO PRN (08:00)
[2020-07-11] MEDS ORDERED: GLUCAGON 1MG KIT 1 MG ML IM PRN (08:00)
[2020-07-11] MEDS ORDERED: DEXTROSE 50%-WATER 50 ML DISP.SYRIN IV PRN (08:00)
[2020-07-11] MEDS ORDERED: KCL 20 MEQ ERTAB PO PRN (08:00)
[2020-07-11] MEDS ORDERED: MAGNESIUM 2GM PREMIX 50ML 50 ML IV PRN (08:00)
[2020-07-11] MEDS ORDERED: POTASSIUM CHLORIDE 20MEQ/100ML 100 ML IV PRN ×2 (08:00)
[2020-07-11] MEDS: FAMOTIDINE 20MG VIAL IV SCH (09:57)
[2020-07-11] MEDS: ENOXAPARIN SODIUM 40 MG/0.4 ML SYRINGE SQ SCH (09:58)
[2020-07-11] MEDS: AZITHROMYCIN 500MG+NS 250ML 250 ML IV SCH (21:40)
[2020-07-11] MEDS: CEFTRIAXONE 1G VIAL IV SCH (21:40)
[2020-07-12] MEDS: IPRATROPIUM/ALBUTEROL SULFATE 3 ML SOLUTION IH SCH ×5 (01:51→18:58)
[2020-07-12] MEDS: 0.9%NACL 1000ML 1,000 ML IV SCH ×3 (03:40→23:40)
[2020-07-12 03:58] VITALS: BP 151/68
[2020-07-12 05:47] LABS: HEMATOCRIT 25.7 % (42-54); MEAN CORPUSCULAR HGB CONC 31.9 g/dL (32.0-36.0); MEAN CORPUSCULAR VOLUME 84.5 fL (79-99); RED BLOOD CELL COUNT(AUTO) 3.04 MIL/uL (4.50-6.20); RED CELL DISTRIBUTION WIDTH 17.2 % (11.0-15.5); WHITE BLOOD COUNT (AUTO) 5.7 K/uL (4.8-10.8)
[2020-07-12 06:07] LABS: CREATININE 0.9 mg/dL (0.5-1.5); POTASSIUM 3.7 mmol/L (3.5-5.1)
[2020-07-12] MEDS: ENOXAPARIN SODIUM 40 MG/0.4 ML SYRINGE SQ SCH (07:54)
[2020-07-12 08:01] VITALS: BP 148/69
[2020-07-12] MEDS: TIMOLOL MALEATE 0.5% 5 ML BOTTLE OP SCH ×2 (09:00→20:49)
[2020-07-12] MEDS: BRIMONIDINE TARTRATE 0.2% 5 ML BOTTLE OU SCH ×2 (09:00→20:50)
[2020-07-12] MEDS: LATANOPROST 2.5 ML DROPS OU SCH ×2 (09:01→20:50)
[2020-07-12] MEDS: FAMOTIDINE 20MG VIAL IV SCH (09:02)
[2020-07-12] MEDS: TAMSULOSIN HCL 0.4 MG CAP.ER.24H PO SCH (09:05)
[2020-07-12 11:45] VITALS: BP 129/57
[2020-07-12 16:22] VITALS: BP 119/62
[2020-07-12 20:00] VITALS: BP 135/60
[2020-07-12] MEDS: AZITHROMYCIN 500MG+NS 250ML 250 ML IV SCH (20:49)
[2020-07-12] MEDS: CEFTRIAXONE 1G VIAL IV SCH (20:49)
[2020-07-13] VITALS: BP 133/67
[2020-07-13] MEDS: IPRATROPIUM/ALBUTEROL SULFATE 3 ML SOLUTION IH SCH ×3 (00:10→06:00)
[2020-07-13 04:00] VITALS: BP 148/68
[2020-07-13 05:08] LABS: HEMATOCRIT 24.4 % (42-54); MEAN CORPUSCULAR HEMOGLOBIN 27.1 pg (27.0-33.0); MEAN CORPUSCULAR HGB CONC 32.4 g/dL (32.0-36.0); MEAN CORPUSCULAR VOLUME 83.6 fL (79-99); RED BLOOD CELL COUNT(AUTO) 2.92 MIL/uL (4.50-6.20); RED CELL DISTRIBUTION WIDTH 17.2 % (11.0-15.5); WHITE BLOOD COUNT (AUTO) 4.6 K/uL (4.8-10.8)
[2020-07-13 05:38] LABS: CREATININE 0.9 mg/dL (0.5-1.5); MAGNESIUM 1.9 mg/dL (1.80-2.40)
[2020-07-13] MEDS ORDERED: IPRATROPIUM/ALBUTEROL SULFATE 3 ML SOLUTION IH PRN (06:45)
[2020-07-13 08:19] VITALS: BP 124/65
[2020-07-13] MEDS: ENOXAPARIN SODIUM 40 MG/0.4 ML SYRINGE SQ SCH (10:12)
[2020-07-13] MEDS: FAMOTIDINE 20MG VIAL IV SCH (10:12)
[2020-07-13] MEDS: TAMSULOSIN HCL 0.4 MG CAP.ER.24H PO SCH (10:13)
[2020-07-13] MEDS: TIMOLOL MALEATE 0.5% 5 ML BOTTLE OP SCH ×2 (10:14→19:47)
[2020-07-13] MEDS: BRIMONIDINE TARTRATE 0.2% 5 ML BOTTLE OU SCH ×2 (10:14→19:46)
[2020-07-13 11:35] VITALS: BP 136/65
[2020-07-13 16:11] VITALS: BP 138/59
[2020-07-13] MEDS: CEFTRIAXONE 1G VIAL IV SCH (19:45)
[2020-07-13] MEDS: AZITHROMYCIN 500MG+NS 250ML 250 ML IV SCH (19:45)
[2020-07-13] MEDS: LATANOPROST 2.5 ML DROPS OU SCH (19:46)
== END 2020-07-13 20:45 | DRG 194 ==
LOC: EDH 15:16 → EDHIP 20:34 → OBSVTOIN 20:34 → 3DH 07-10 11:44
PROVIDERS: ADMIT Internal Medicine; ATTEND Internal Medicine
DX: J15.9 Unspecified bacterial pneumonia (principal); N39.0 Urinary tract infection, site not specified; E87.1 Hypo-osmolality and hyponatremia; F05 Delirium due to known physiological condition; J98.11 Atelectasis; J90 Pleural effusion, not elsewhere classified; E78.5 Hyperlipidemia, unspecified; I10 Essential (primary) hypertension; N40.0 Benign prostatic hyperplasia without lower urinary tract symptoms; E11.9 Type 2 diabetes mellitus without complications; G89.29 Other chronic pain; G20 Parkinson's disease; E78.00 Pure hypercholesterolemia, unspecified; H54.62 Unqualified visual loss, left eye, normal vision right eye; H40.9 Unspecified glaucoma; Z79.84 Long term (current) use of oral hypoglycemic drugs; Z87.891 Personal history of nicotine dependence; Z86.73 Personal history of transient ischemic attack (TIA), and cerebral infarction without residual deficits; Z82.5 Family history of asthma and other chronic lower respiratory diseases; Z20.822 Contact with and (suspected) exposure to COVID-19
CPT/HCPCS: 36415; 70450; 71045; 76604; 80048; 80053; 81001; 82140; 82248; 82607; 82746; 82948; 83735; 83880; 84443; 84484; 85025; 85027; 85610; 85730; 86140; 86592; 87040; 87426; 92526; 92610; 93005; 94640; 97039; G0378; J0456; J0696; J1650; J3475; J3490; J7030; U0003

== ENCOUNTER → 2020-08-26 | Outpatient (CLI) | payer OTHER ==
[~2020-08-26] MED LIST changes: +ALBUMIN (HUMAN) 25% 200 ML IV SCH; -CARB1TAB20 PO; -FERS325 PO; -FLUD.1 PO; -GABA600T10 PO; +HYDR-4068 PO; +IRON1CAP30 PO; -LISI2.5T13 PO; -PRAV10TA39 PO
[2020-08-26 10:16] LABS: BASOPHILS % (AUTO) 0.3 % (0.0-5.0); EOSINOPHILS % (AUTO) 1.2 % (0.0-8.0); HEMATOCRIT 28.8 % (42-54); LYMPHOCYTES % (AUTO) 24.3 % (21.0-51.0); MEAN CORPUSCULAR HGB CONC 33.3 g/dL (32.0-36.0); MEAN CORPUSCULAR VOLUME 80.9 fL (79-99); MONOCYTES % (AUTO) 7.1 % (3.0-13.0); NEUTROPHILS % (AUTO) 66.8 % (40.0-77.0); PLATELET COUNT (AUTO) 431 K/uL (130-400); RED BLOOD CELL COUNT(AUTO) 3.56 MIL/uL (4.50-6.20); RED CELL DISTRIBUTION WIDTH 17.6 % (11.0-15.5); WHITE BLOOD COUNT (AUTO) 5.8 K/uL (4.8-10.8)
[2020-08-26 10:33] LABS: INR 1.17 (0.85-1.15); PROTHROMBIN TIME 12.6 SEC (9.6-11.6)
[2020-08-26 10:38] LABS: ALBUMIN 2.5 g/dL (3.5-5.0); BILIRUBIN,TOTAL 1.4 mg/dL (0.2-1.0); CREATININE 1.3 mg/dL (0.5-1.5); POTASSIUM 4.6 mmol/L (3.5-5.1); TOTAL PROTEIN, SERUM 6.5 g/dL (6.0-8.3)
[2020-08-26 13:38] LABS: ALBUMIN,BODY FLUID 0.9 g/dL
[2020-08-26 13:52] LABS: APPEARANCE BODY FLUID CLEAR (CLEAR); COLOR,BODY FLUID YELLOW (LT YELLOW); SPECIMENTYPE,BODY FLUID ASCITES; TOTAL VOLUME,BODY FLUID 3500 mL
[2020-08-26 13:53] LABS: BODY FLUID RBC 272 /cu. mm.; BODY FLUID WBC 130 /cu. mm.
[2020-08-26 14:02] LABS: BF LYMPHOCYTE 46 %; BF MESOTHELIAL 47 %; BF MONOCYTE 4 %
== END | disposition home or self-care (01) ==
LOC: RAH 09:33
PROVIDERS: ATTEND Internal Medicine Gastroenterology
DX: R18.8 Other ascites (principal); K74.60 Unspecified cirrhosis of liver
CPT/HCPCS: 36415; 49083; 80053; 82042; 84157; 85025; 85610; 87071; 87205; 89051; A4215; P9046; 96365

== ENCOUNTER → 2020-09-14 | Outpatient (CLI) | payer OTHER ==
[~2020-09-14] MED LIST changes: -ALBUMIN (HUMAN) 25% 200 ML IV SCH
== END | disposition home or self-care (01) ==
LOC: RAH 07:41
PROVIDERS: ATTEND Internal Medicine Gastroenterology
DX: R77.2 Abnormality of alphafetoprotein (principal); R18.8 Other ascites; K74.60 Unspecified cirrhosis of liver
CPT/HCPCS: 74170